=== PATIENT | female | born 1970 | race Caucasian/White ===

== ENCOUNTER 2018-07-06 19:47 | Emergency (ER) | payer OTHER, SELFPAY ==
--- NOTE | 2018-07-06 | DI.RAD.S_ITS ---
PROCEDURE: XR FINGER LT MIN 2V INDICATIONS: LEFT HAND PAIN TECHNIQUE: AP hand, 2 views of the third finger(s) acquired. COMPARISON: [facility], , XR HAND LT MIN 3V, 07/06/2018, 20:08. FINDINGS: Bones: No fractures or dislocations. No suspicious bony lesions. Soft tissues: No suspicious soft tissue calcifications. IMPRESSION: No acute fracture. No osseous lesion. If clinical suspicion and/or symptoms persist, further assessment with repeat plainfilms, or advanced imaging (e.g., CT, MRI, or bone scan) may be helpful for further assessment. Dictated by: Sera White M.D. on 07/06/2018 at 20:46 Approved by: Sera White M.D. on 07/06/2018 at 20:47
[2018-07-06 19:55] VITALS: PULSE 70
[2018-07-06 20:00] VITALS: BP 129/62; PULSE 70; RESP 18; TEMP 36.8; O2SAT 97; BMI 33.5
--- NOTE | 2018-07-06 20:05 | DI.RAD.S_ITS ---
PROCEDURE: XR HAND LT MIN 3V INDICATIONS: left hand injury TECHNIQUE: 3 views of the hand(s) acquired. COMPARISON: None. FINDINGS: Bones: No fractures or dislocations. Carpal bones are normally aligned. No suspicious bony lesions. Distal radius and ulna are obscured. Proximal carpal row is obscured. Soft tissues: No suspicious soft tissue calcifications. IMPRESSION: No acute fracture. No osseous lesion. If clinical suspicion and/or symptoms persist, further assessment with repeat plainfilms, or advanced imaging (e.g., CT, MRI, or bone scan) may be helpful for further assessment. Dictated by: Sera White M.D. on 07/06/2018 at 20:18 Approved by: Sera White M.D. on 07/06/2018 at 20:19
--- NOTE | 2018-07-06 20:16 | ED.UPPEXIN ---
HPI - Extremity Injury (Upper) <Jackie Soria PA-C - Last Filed: 07/06/18 22:31> General Chief Complaint: Extremity Injury, Upper Stated Complaint: hurt left middle finger Time Seen by Provider: 07/06/18 20:16 Source: patient Mode of arrival: ambulatory Limitations: no limitations History of Present Illness HPI narrative: This 47-year-old female states that she tripped on her way out of the door and somehow hit her left hand fingers and bent them awkwardly on the door as it was closing. She states that she has had pain in her middle and ring fingers since then and unable to move the middle finger. She denies any pain elsewhere in her hands, no wrist pain. She denies any other injury. She has a small scab on the finger from where she hit the door. She does not remember the date of her last tetanus vaccine. Related Data Home Medications Medication Instructions Recorded Confirmed [UNKNOWN MED ] #0 06/04/16 Allergies Allergy/AdvReac Type Severity Reaction Status Date / Time No Known Allergies Allergy Uncoded 08/11/17 12:05 Review of Systems <Jackie Soria PA-C - Last Filed: 07/06/18 22:31> Review of Systems ROS Unobtainable: All systems reviewed & are unremarkable except as noted in HPI and below PFSH <Jackie Soria PA-C - Last Filed: 07/06/18 22:31> Medical History Generalized anxiety disorder (Chronic) Surgical History Status post breast reduction (Resolved) Status post cholecystectomy (Resolved) Social History Smoking Status: Never smoker Social History Smoking Status: Never smoker Exam <Jackie Soria PA-C - Last Filed: 07/06/18 22:31> Narrative Exam Narrative: GENERAL APPEARANCE: Patient sitting comfortably, in no distress. LUNGS: Clear to auscultation bilaterally. HEART: Rate and rhythm regular without murmur, normal S1 and S2, no S3 or S4. MUSCULOSKELETAL: flexion deformity of the left middle finger at the PIP, unable to extend actively, and the finger is held in flexion sitting over the 2nd finger ( unable to deviated medially).. She is tender over the 4th finger from the MCP joint to the PIP. No tenderness elsewhere over the hand or fingers. Strength is intact against resistance in all fingers aside from the middle finger. DERMATOLOGIC: Ecchymoses over the left 4th finger From the MCP to the PIP. There is a small scab at the medial border of the middle finger nail NEUROVASCULAR: left finger tips are warm and pink, radial and ulnar pulses are intact, sensation is grossly intact Initial Vital Signs Initial Vital Signs: Vital Signs Pulse Rate 70 07/06/18 19:55 <Rodríguez Rodrigues MD - Last Filed: 07/07/18 04:44> Initial Vital Signs Initial Vital Signs: Vital Signs Pulse Rate 70 07/06/18 19:55 Course <Jackie Soria PA-C - Last Filed: 07/06/18 22:31> Additional Information: there was no acute fracture visualized on x-ray, however patient has clear tendon weakness concern for rupture. I spoke with Dr. Richards, correctional security officer for orthopedics, who was kind enough to review photos of the deformity and x-ray. He suspects joint malrotation. Dr. Rodrigues was able to flex and extend the finger passively and did try to reduce would not reduce. Splinted comfortably for the evening and Dr. Richards advised his nurse will call early a.m. to get patient on schedule for OR. She will be NPO after midnight Orders Ordered: ED Orders 07/06/18 20:05 XR hand LT min 3V Stat Discontinued Medications Ibuprofen (Advil) 800 mg PO NOW ONE Stop: 07/06/18 20:51 Last Admin: 07/06/18 20:59 Dose: 800 mg Oxycodone/Acetaminophen (Endocet 5/325 Prepack) 1 bottle MISC SEEINSTR ONE Stop: 07/06/18 22:11 Last Admin: 07/06/18 22:13 Dose: 1 bottle Tetanus/Diphtheria Toxoids (Td) 0.5 ml IM .ONCE ONE Stop: 07/06/18 21:16 Last Admin: 07/06/18 21:18 Dose: 0.5 ml Vital Signs - 8 hr 07/06/18 22:13 Pulse Rate 65 Respiratory Rate 16 Blood Pressure [Left Arm] 118/69 Pulse Oximetry 100 <Rodríguez Rodrgiues MD - Last Filed: 07/07/18 04:44> Orders Ordered: ED Orders 07/06/18 20:05 XR hand LT min 3V Stat Discontinued Medications Ibuprofen (Advil) 800 mg PO NOW ONE Stop: 07/06/18 20:51 Last Admin: 07/06/18 20:59 Dose: 800 mg Oxycodone/Acetaminophen (Endocet 5/325 Prepack) 1 bottle MISC SEEINSTR ONE Stop: 07/06/18 22:11 Last Admin: 07/06/18 22:13 Dose: 1 bottle Tetanus/Diphtheria Toxoids (Td) 0.5 ml IM .ONCE ONE Stop: 07/06/18 21:16 Last Admin: 07/06/18 21:18 Dose: 0.5 ml Vital Signs - 8 hr 07/06/18 22:13 Pulse Rate 65 Respiratory Rate 16 Blood Pressure [Left Arm] 118/69 Pulse Oximetry 100 MDM - Extremity Injury (Upper) <Jackie Soria PA-C - Last Filed: 07/06/18 22:31> Imaging Data hand: Radiologist's impression: [address] [address] XRay Report Signed Patient: Tina Fernandez [facility]#: [id number] : 1970Acct:[id number] Age/Sex: 47 / FDate of Service: 07/06/18 Loc: ED Accession Number: [id number] Procedure: XR hand LT min 3V Ordering Provider: Rodríguez Rodrigues M.D. PROCEDURE: XR HAND LT MIN 3V INDICATIONS: left hand injury TECHNIQUE: 3 views of the hand(s) acquired. COMPARISON: None. FINDINGS: Bones: No fractures or dislocations. Carpal bones are normally aligned. No suspicious bony lesions. Distal radius and ulna are obscured. Proximal carpal row is obscured. Soft tissues: No suspicious soft tissue calcifications. IMPRESSION: No acute fracture. No osseous lesion. If clinical suspicion and/or symptoms persist, further assessment with repeat plainfilms, or advanced imaging (e.g., CT, MRI, or bone scan) may be helpful for further assessment. Dictated by: Sera White M.D. on 07/06/2018 at 20:18 Approved by: Sera White M.D. on 07/06/2018 at 20:19 Discharge Plan Departure Patient Disposition: Home Clinical Impression: Closed dislocation finger, proximal interphalangeal joint, traumatic Discharge Date/Time: 07/06/18 22:20 Interventions: ED Discharge Assessment Last Done: 07/06/18 22:19 Instructions: DI for Finger Dislocation Activity Restrictions/Additional Instructions: Please keep your finger in the splint tonight. We have given you some oxycodone/acetaminophen to take for this evening, 1-2 tablets every 4-[address] Richards's nurse (the orthopedic doctor that I spoke with herminioshashi and saw your pictures) will call you in the morning about 8:00 a.m. with a time to be therefore surgery, likely in the morning. Do not eat or drink anything after midnight tonight. He will plan to fix this in day surgery tomorrow. Return as we talked about if you have acutely worsening symptoms this evening. Prescriptions: No Action [UNKNOWN MED ] Qty: 0 RF: 0 Referrals: Channing Richards MD [Physician] - Natalie Paredes DO [Primary Care Provider] - <Rodríguez Rodrigues MD - Last Filed: 07/07/18 04:44> Cosign ED Attending Martineature Attestation: I was in the ER at the time of this patient's care. I was available for assistance if needed. I agree with the assessment and treatment plan.
--- NOTE | 2018-07-06 20:24 | ED_ITS ---
HPI - Extremity Injury (Upper) <Jackie Soria PA-C - Last Filed: 07/06/18 22:31> General Chief Complaint: Extremity Injury, Upper Stated Complaint: hurt left middle finger Time Seen by Provider: 07/06/18 20:16 Source: patient Mode of arrival: ambulatory Limitations: no limitations History of Present Illness HPI narrative: This 47-year-old female states that she tripped on her way out of the door and somehow hit her left hand fingers and bent them awkwardly on the door as it was closing. She states that she has had pain in her middle and ring fingers since then and unable to move the middle finger. She denies any pain elsewhere in her hands, no wrist pain. She denies any other injury. She has a small scab on the finger from where she hit the door. She does not remember the date of her last tetanus vaccine. Related Data Home Medications Medication Instructions Recorded Confirmed [UNKNOWN MED ] #0 06/04/16 Allergies Allergy/AdvReac Type Severity Reaction Status Date / Time No Known Allergies Allergy Uncoded 08/11/17 12:05 Review of Systems <Jackie Soria PA-C - Last Filed: 07/06/18 22:31> Review of Systems ROS Unobtainable: All systems reviewed & are unremarkable except as noted in HPI and below PFSH <Jackie Soria PA-C - Last Filed: 07/06/18 22:31> Medical History Generalized anxiety disorder (Chronic) Surgical History Status post breast reduction (Resolved) Status post cholecystectomy (Resolved) Social History Smoking Status: Never smoker Social History Smoking Status: Never smoker Exam <Jackie Soria PA-C - Last Filed: 07/06/18 22:31> Narrative Exam Narrative: GENERAL APPEARANCE: Patient sitting comfortably, in no distress. LUNGS: Clear to auscultation bilaterally. HEART: Rate and rhythm regular without murmur, normal S1 and S2, no S3 or S4. MUSCULOSKELETAL: flexion deformity of the left middle finger at the PIP, unable to extend actively, and the finger is held in flexion sitting over the 2nd finger ( unable to deviated medially).. She is tender over the 4th finger from the MCP joint to the PIP. No tenderness elsewhere over the hand or fingers . Strength is intact against resistance in all fingers aside from the middle finger. DERMATOLOGIC: Ecchymoses over the left 4th finger From the MCP to the PIP. There is a small scab at the medial border of the middle finger nail NEUROVASCULAR: left finger tips are warm and pink, radial and ulnar pulses are intact, sensation is grossly intact Initial Vital Signs Initial Vital Signs: Vital Signs Pulse Rate 70 07/06/18 19:55 <Rodríguez Rodrigues MD - Last Filed: 07/07/18 04:44> Initial Vital Signs Initial Vital Signs: Vital Signs Pulse Rate 70 07/06/18 19:55 Course <Jackie Soria PA-C - Last Filed: 07/06/18 22:31> Additional Information: there was no acute fracture visualized on x-ray, however patient has clear tendon weakness concern for rupture. I spoke with Dr. Richards, chief librarian extension department for orthopedics, who was kind enough to review photos of the deformity and x-ray. He suspects joint malrotation. Dr. Rodrigues was able to flex and extend the finger passively and did try to reduce would not reduce. Splinted comfortably for the evening and Dr. Richards advised his nurse will call early a.m. to get patient on schedule for OR. She will be NPO after midnight Orders Ordered: ED Orders 07/06/18 20:05 XR hand LT min 3V Stat Discontinued Medications Ibuprofen (Advil) 800 mg PO NOW ONE Stop: 07/06/18 20:51 Last Admin: 07/06/18 20:59 Dose: 800 mg Oxycodone/Acetaminophen (Endocet 5/325 Prepack) 1 bottle MISC SEEINSTR ONE Stop: 07/06/18 22:11 Last Admin: 07/06/18 22:13 Dose: 1 bottle Tetanus/Diphtheria Toxoids (Td) 0.5 ml IM .ONCE ONE Stop: 07/06/18 21:16 Last Admin: 07/06/18 21:18 Dose: 0.5 ml Vital Signs - 8 hr 07/06/18 22:13 Pulse Rate 65 Respiratory Rate 16 Blood Pressure [Left Arm] 118/69 Pulse Oximetry 100 <Rodríguez Rodrigues MD - Last Filed: 07/07/18 04:44> Orders Ordered: ED Orders 07/06/18 20:05 XR hand LT min 3V Stat Discontinued Medications Ibuprofen (Advil) 800 mg PO NOW ONE Stop: 07/06/18 20:51 Last Admin: 07/06/18 20:59 Dose: 800 mg Oxycodone/Acetaminophen (Endocet 5/325 Prepack) 1 bottle MISC SEEINSTR ONE Stop: 07/06/18 22:11 Last Admin: 07/06/18 22:13 Dose: 1 bottle Tetanus/Diphtheria Toxoids (Td) 0.5 ml IM .ONCE ONE Stop: 07/06/18 21:16 Last Admin: 07/06/18 21:18 Dose: 0.5 ml Vital Signs - 8 hr 07/06/18 22:13 Pulse Rate 65 Respiratory Rate 16 Blood Pressure [Left Arm] 118/69 Pulse Oximetry 100 MDM - Extremity Injury (Upper) <Jackie Soria PA-C - Last Filed: 07/06/18 22:31> Imaging Data hand: Radiologist's impression: [address] [address] XRay Report Signed Patient: Tina Fernandez [facility]#: [id number] : 1970Acct:[id number] Age/Sex: 47 / FDate of Service: 07/06/18 Loc: ED Accession Number: [id number] Procedure: XR hand LT min 3V Ordering Provider: Rodríguez Rodrigues M.D. PROCEDURE: XR HAND LT MIN 3V INDICATIONS: left hand injury TECHNIQUE: 3 views of the hand(s) acquired. COMPARISON: None. FINDINGS: Bones: No fractures or dislocations. Carpal bones are normally aligned. No suspicious bony lesions. Distal radius and ulna are obscured. Proximal carpal row is obscured. Soft tissues: No suspicious soft tissue calcifications. IMPRESSION: No acute fracture. No osseous lesion. If clinical suspicion and/or symptoms persist, further assessment with repeat plainfilms, or advanced imaging (e.g., CT, MRI, or bone scan) may be helpful for further assessment. Dictated by: Sera White M.D. on 07/06/2018 at 20:18 Approved by: Sera White M.D. on 07/06/2018 at 20:19 Discharge Plan Departure Patient Disposition: Home Clinical Impression: Closed dislocation finger, proximal interphalangeal joint, traumatic Discharge Date/Time: 07/06/18 22:20 Interventions: ED Discharge Assessment Last Done: 07/06/18 22:19 Instructions: DI for Finger Dislocation Activity Restrictions/Additional Instructions: Please keep your finger in the splint tonight. We have given you some oxycodone/acetaminophen to take for this evening, 1-2 tablets every 4-[address] Richadrs's nurse (the orthopedic doctor that I spoke with herminioshashi and saw your pictures) will call you in the morning about 8:00 a.m. with a time to be therefore surgery, likely in the morning. Do not eat or drink anything after midnight tonight. He will plan to fix this in day surgery tomorrow. Return as we talked about if you have acutely worsening symptoms this evening. Prescriptions: No Action [UNKNOWN MED ] Qty: 0 RF: 0 Referrals: Channing Richards MD [Physician] - Natalie Paredes DO [Primary Care Provider] - <Rodríguez Rodrigues MD - Last Filed: 07/07/18 04:44> Cosign ED Attending Martineature Attestation: I was in the ER at the time of this patient's care. I was available for assistance if needed. I agree with the assessment and treatment plan.
[2018-07-06] MEDS: IBUPROFEN 400 MG TABLET 800 MG PO (20:59)
[2018-07-06] MEDS: TETANUS DIPHTHERIA TOXOIDS 0.5 ML VIAL IM (21:18)
[2018-07-06 22:13] VITALS: BP 118/69; PULSE 65; RESP 16; O2SAT 100
[2018-07-06] MEDS: OXYCODONE/APAP 5/325 PREPACK 1 BOTTLE MISC (22:13)
== END 2018-07-06 22:20 | disposition home or self-care (01) ==
PROVIDERS: Emergency Provider Internal Medicine; PCP Family Medicine
DX: S63.289A Dislocation of proximal interphalangeal joint of unspecified finger, initial encounter (principal); W18.40XA Slipping, tripping and stumbling without falling, unspecified, initial encounter
CPT/HCPCS: 73130; 73140; 90471; 90714; 99282; 99283

== ENCOUNTER 2019-05-25 13:30 | Day surgery (SDC) | payer OTHER, SELFPAY ==
[2019-05-25] VITALS (7 sets, daily range): BP systolic 102–111; BP diastolic 61–70; PULSE 61–71; RESP 11–16; TEMP 36.2–36.7; O2SAT 96–98; BMI 33.2
[2019-05-25] MEDS: SODIUM CHLORIDE 0.9% 1,000 ML 200 ML IV (13:47)
--- NOTE | 2019-05-25 14:39 | P.HP_ITS ---
History of Present Illness History of Present Illness Date Patient Seen: 05/25/19 Time Patient Seen: 14:41 Chief complaint: [id number] SCREENING COLONOSCOPY Narrative: Patient presents for colorectal screening. They have never had any previous examination for such. No personal or family history of colon cancer. On further history denies any recent gastrointestinal symptoms. No nausea, vomiting, abdominal pain, loss of appetite, unexplained weight loss, change in b owel habits, diarrhea, constipation, melena, hematochezia, or bright red blood per rectum. Patient History Medical History Generalized anxiety disorder (Chronic) Surgical History Status post breast reduction (Resolved) Status post cholecystectomy (Resolved) Family & Social History Social History: household members spouse Tobacco & Substance use: Smoking Status Never smoker alcohol intake frequency a few times a month Substance Use Type does not use Meds Home Medications and Allergies Home Medications Medication Instructions Recorded Confirmed Type [UNKNOWN MED ] #0 06/04/16 History alprazolam 0.25 mg PO BEDTIME PRN 05/25/19 05/25/19 History bupropion HCl 150 mg PO BID 05/25/19 05/25/19 History escitalopram oxalate 20 mg PO DAILY 05/25/19 05/25/19 History Allergies Allergy/AdvReac Type Severity Reaction Status Date / Time No Known Allergies Allergy Verified 05/25/19 13:27 Review of Systems Review of Systems Narrative: A 10 point review of systems is negative except as noted in the HPI Exam Vital Signs (past 8 hours): - 05/25/19 13:53 Temperature 97.7 F Pulse Rate 71 Respiratory Rate 16 Blood Pressure 102/66 Pulse Oximetry 96 Oxygen Delivery Method Room Air Narrative Exam Narrative: General-no acute distress, well nourished HEENT-moist mucous membranes, no scleral icterus Neck-supple, no lymphadenopathy Chest- non labored respirations, clear to auscultation bilaterally Cardiac-regular rate no peripheral edema Abdomen-soft, nontender, non distended Extremities-warm, well perfused Neurological-alert and oriented, no focal deficits Assessment & Plan Assessment and plan (1) Screening for colon cancer: Current visit: Yes Status: Acute Assessment & Plan narrative: The patient requires colorectal screening and colonoscopy is recommended. Technical details were discussed. Risks, benefits, alternatives explained. Risks including but not limited to myocardial infarction, aspiration, bleeding, pain, missed lesion, incomplete examination, need for further radiographic studies, colonic perforation, and need for major abdominal surgery were discussed. All questions were answered to their satisfaction, and they are in agreement with this plan.
[2019-05-25] MEDS: fentaNYL 250 MCG/5 ML INJ IV (14:43)
[2019-05-25] MEDS: MIDAZOLAM 5 MG/5 ML VIAL IV (14:44)
--- NOTE | 2019-05-25 15:07 | PM.OP.ENDO ---
Operative Date/Time/Diagnoses Date of procedure: 05/25/19 Time of procedure: 15:07 Pre-op diagnosis: screening colonoscopy Post-op diagnosis: same Procedure & Clinicians Study performed: colonoscopy Same procedure as scheduled: Yes Indications: 48-year-old female no prior colonoscopy presents for routine screening. Surgeon: Micah Penaloza Procedure Notes SCOAP/Timeout: Performed Procedure in detail: Patient placed in left lateral decubitus position. Time out was performed. Procedural sedation was administered with Versed and Fentanyl. A rectal exam demonstrated no external hemorrhoids no internal masses. Colonoscopy scope was placed into the rectum and advanced through the colon to the cecum. The ileocecal valve was identified. The scope was then slowly withdrawn examining colon thoroughly in all directions. The colonoscopy was notable for the following 1. No masses or polyps 2. No diverticulosis 3. Quality of prep excellent Scope withdrawal time: 6 Sedation minutes: 21 Specimen(s): none sent Complications: none Impression: Normal colonoscopy Post-procedure Recommendations: Colonscopy in 10 years Disposition: same day surgery
--- NOTE | 2019-05-25 15:52 | SUR.PHASEII ---
Lois at bedside. Patient tolerating PO fluids. No pain. VSS. Discharge instructions given to spouse.
== END 2019-05-25 16:12 | disposition home or self-care (01) ==
PROVIDERS: PCP Family Medicine; Visit Provider Surgery
PROC: 0DJD8ZZ Inspection of Lower Intestinal Tract, Via Natural or Artificial Opening Endoscopic (ICD-10-PCS; CPT 45378; principal; 2019-05-25 14:30)
DX: Z12.11 Encounter for screening for malignant neoplasm of colon (principal); F41.9 Anxiety disorder, unspecified
CPT/HCPCS: 45378; 99152; J2250; J3010

== ENCOUNTER → 2019-12-06 08:02 | Outpatient (CLI) | payer OTHER, SELFPAY ==
[2019-12-06 09:26] LABS: Add Manual Diff / Slide Review NO; Basophils Absolute Auto 100 /uL (0-100); Basophils Percent Auto 1.7 % (0-2); Eosinophils Absolute Auto 200 /uL (0-450); Eosinophils Percent Auto 3.3 % (2-4); Hematocrit 33.3 % (36-46); Hemoglobin 10.4 g/dL (12.0-16.0); Lymphocytes Absolute Auto 1200 /uL (1100-4500); Lymphocytes Percent Auto 17.6 % (25-40); Mean Corpuscular HGB Conc 31.3 % (30-36); Mean Corpuscular Hemoglobin 21.5 PG (26-34); Mean Corpuscular Volume 68.8 fL (80-100); Monocytes Absolute Auto 600 /uL (0-900); Monocytes Percent Auto 9.7 % (3-14); Neutrophils Absolute Auto 4500 /uL (1500-7000); Neutrophils Percent Auto 67.7 % (50-75); Platelet Count 365 X10^3/uL (150-400); Red Blood Cell Count 4.84 X10^6/uL (4.0-5.2); White Blood Cell Count 6.7 X10^3/uL (4.5-11.0)
[2019-12-06 09:44] LABS: HEMOLYSIS < 15 (0-50); Iron 25 ug/dL (37-170)
[2019-12-06 09:49] LABS: Alanine Aminotransferase 10 IU/L (<35); Albumin 4.3 g/dL (3.5-5.0); Albumin Globulin Ratio 1.6 (1.0-2.8); Alkaline Phosphatase 91 U/L (38-126); Aspartate Aminotransferase 17 IU/L (14-36); BUN Creatinine Ratio 14.6 (6-22); Bilirubin Total 0.3 mg/dL (0.2-1.3); Blood Urea Nitrogen 12 mg/dL (7-17); Calcium 9.5 mg/dL (8.4-10.2); Carbon Dioxide 28 mmol/L (22-32); Chloride 103 mmol/L (98-107); Cholesterol 235 mg/dL (140-199); Estimated Glomerular Filt Rate > 60.0 mL/min (>60); Globulin 2.7 g/dL (1.7-4.1); Glucose 104 mg/dL (70-100); HDL Cholesterol 47 mg/dL (40-60); HEMOLYSIS < 15 (0-50); LDL Cholesterol Calculated 162 mg/dL (<100); Potassium 4.9 mmol/L (3.4-5.1); Sodium 137 mmol/L (137-145); Triglycerides 129 mg/dL (35-150)
[2019-12-06 09:54] LABS: Microcytosis 2+; Percent Iron Saturation 6 % (15-50); Total Iron Binding Capacity 393 ug/dL (265-497); Transferrin 312 mg/dL (206-381)
== END ==
PROVIDERS: PCP Physician Assistant; Referring Provider Physician Assistant; Visit Provider Physician Assistant
DX: D50.8 Other iron deficiency anemias (principal); F41.9 Anxiety disorder, unspecified; E78.2 Mixed hyperlipidemia
CPT/HCPCS: 36415; 80053; 80061; 83540; 83550; 85025

== ENCOUNTER → 2020-02-27 10:58 | Outpatient (CLI) | payer OTHER, SELFPAY ==
[2020-02-28 06:31] LABS: COVID19 Sendout Not Detected (Not Detect)
== END ==
PROVIDERS: PCP Physician Assistant; Visit Provider Nurse Practitioner
DX: Z11.59 Encounter for screening for other viral diseases (principal)
CPT/HCPCS: 87635

== ENCOUNTER 2020-03-01 08:38 | Day surgery (SDC) | payer OTHER, SELFPAY ==
[2020-02-29 08:26] VITALS: BMI 33.3
[2020-03-01 08:56] VITALS: BMI 33.3
[2020-03-01 09:09] VITALS: BP 109/70; PULSE 70; RESP 26; TEMP 36.4; O2SAT 97
[2020-03-01] MEDS: LACTATED RINGERS 1,000 ML 42 ML IV (09:17)
--- NOTE | 2020-03-01 09:57 | PM.PREOP ---
Pre-operative Note COVID-19 COVID-19 status: Negative Result date/Date tested (Pos, Neg/Pending): 02/27/20 Interval Note History & Physical reviewed/Exam performed by Physician: Yes Changes to H&P: No
--- NOTE | 2020-03-01 10:22 | SUR.OPER ---
Lithotomy on padded OR bed, head on pillow, arms secured on padded arm boards at <90 degrees abduction. Legs secured in padded yellow fins stirrups.
[2020-03-01] MEDS: SILVER NITRATE STICK 2 EACH TOP (10:33)
[2020-03-01 10:42] VITALS: BP 112/64; PULSE 76; RESP 13; TEMP 36.4; O2SAT 96
--- NOTE | 2020-03-01 10:45 | PM.OP.1 ---
Operative Date/Time/Diagnoses Date of procedure: 03/01/20 Time of procedure: 10:00 Pre-op diagnosis: Heavy menstrual bleeding Post-op diagnosis: same Procedure & Clinicians Procedure: Endometrial ablation Same procedure as scheduled: Yes Indications: Heavy menstrual bleeding Surgeon: Birgit Sears Membership Director: Anali Ruiz Anesthesia Type: Sedation Operative Notes Findings: Normal vulva and vagina. Uterus sounds to 8 cm, 4 cm cavity with 4 cm cervix Specimen(s): none sent Estimated Blood Loss (mL): 0 Procedure in detail: After informed consent was obtained, the patient was taken to the operating room where she was placed under IV sedation. She she was placed in the dorsal lithotomy position and prepped and draped in the normal sterile fashion. An exam was performed and the uterus found to be mildly anteverted. An open-sided bivalve speculum was placed into the vagina, and the cervix easily visualized. The anterior lip of the cervix was grasped with a single-tooth tenaculum. A sound was used to measure the cervix to 4 cm without palpable internal os, and then gently advanced through the internal os to the fundus, measuring the total distance 8 cm for cavity length of 4 cm. The cervix was then gently dilated to 8 mm with Hegar dilators, with only gentle pressure needed. The NovaSure device was inspected, and found to be working properly. It was gently inserted through the cervix to the uterine fundus, and the ablation device deployed and locked into place. The device was rotated gently anteriorly and posteriorly to ensure maximum contact with the endometrial cavity. Cervical seal was deployed. A cavity assessment was performed and was passed, and the cavity width was found to be 3 cm. Power was calculated to be 66 w . Endometrial ablation was performed, with 120 seconds of ablation. The NovaSure device was withdrawn and removed from the uterus. The tenaculum was removed from the anterior lip of the cervix, and hemostasis at the tenaculum sites achieved with silver nitrate. The speculum was removed from the vagina. The patient tolerated the procedure well and was taken to the PACU in stable condition. IVF 700ccs Complications: none Post-operative Condition: stable Disposition: PACU Plan for aftercare: Routine postoperative care
[2020-03-01 10:47] VITALS: BP 110/67; PULSE 68; RESP 12; O2SAT 98
[2020-03-01 10:55] VITALS: BP 113/65; PULSE 65; RESP 17; O2SAT 97
[2020-03-01] MEDS: OXYCODONE/ACETAMINOPHEN 5/325 TABLET 1 TAB PO (11:01)
[2020-03-01 11:05] VITALS: BP 110/67; PULSE 68; RESP 12; TEMP 36.2; O2SAT 98
[2020-03-01 11:08] VITALS: BP 115/51; PULSE 62; RESP 16; TEMP 36.2; O2SAT 99
== END 2020-03-01 11:25 | disposition home or self-care (01) ==
PROVIDERS: PCP Physician Assistant; Referring Provider Obstetrics & Gynecology; Visit Provider Obstetrics & Gynecology
PROC: 0U5B8ZZ Destruction of Endometrium, Via Natural or Artificial Opening Endoscopic (ICD-10-PCS; CPT 58563; principal; 2020-03-01 09:45)
DX: N92.0 Excessive and frequent menstruation with regular cycle (principal)
CPT/HCPCS: 58353; J2704; J3010

== ENCOUNTER → 2020-05-23 18:51 | Outpatient (ROUT) | payer OTHER, SELFPAY ==
[2020-05-23 19:19] LABS: Add Manual Diff / Slide Review NO; Basophils Absolute Auto 100 /uL (0-100); Eosinophils Absolute Auto 200 /uL (0-450); Eosinophils Percent Auto 2.5 % (2-4); Hematocrit 40.6 % (36-46); Hemoglobin 13.5 g/dL (12.0-16.0); Lymphocytes Absolute Auto 1600 /uL (1100-4500); Lymphocytes Percent Auto 20.2 % (25-40); Mean Corpuscular HGB Conc 33.3 % (30-36); Mean Corpuscular Hemoglobin 27.9 PG (26-34); Mean Corpuscular Volume 83.8 fL (80-100); Monocytes Absolute Auto 800 /uL (0-900); Monocytes Percent Auto 9.6 % (3-14); Neutrophils Absolute Auto 5300 /uL (1500-7000); Neutrophils Percent Auto 66.7 % (50-75); Platelet Count 273 X10^3/uL (150-400); Red Blood Cell Count 4.85 X10^6/uL (4.0-5.2); Red Cell Distribution Width 14.3 % (11.6-14.8)
[2020-05-23 19:23] LABS: HEMOLYSIS < 15 (0-50); Iron 41 ug/dL (37-170)
[2020-05-23 19:28] LABS: Alanine Aminotransferase 17 IU/L (<35); Albumin 4.1 g/dL (3.5-5.0); Albumin Globulin Ratio 1.6 (1.0-2.8); Alkaline Phosphatase 79 U/L (38-126); Aspartate Aminotransferase 27 IU/L (14-36); BUN Creatinine Ratio 13.8 (6-22); Bilirubin Total 0.2 mg/dL (0.2-1.3); Blood Urea Nitrogen 11 mg/dL (7-17); Calcium 9.3 mg/dL (8.4-10.2); Carbon Dioxide 31 mmol/L (22-32); Chloride 101 mmol/L (98-107); Estimated Glomerular Filt Rate > 60.0 mL/min (>60); Globulin 2.6 g/dL (1.7-4.1); Glucose 102 mg/dL (70-100); HEMOLYSIS < 15 (0-50); Potassium 4.2 mmol/L (3.4-5.1); Sodium 136 mmol/L (137-145); Total Protein 6.7 g/dL (6.3-8.2)
[2020-05-23 19:29] LABS: C-Reactive Protein Quant < 0.5 mg/dL (<1.0)
[2020-05-23 19:38] LABS: Percent Iron Saturation 15 % (15-50); Total Iron Binding Capacity 281 ug/dL (265-497); Transferrin 216 mg/dL (206-381)
[2020-05-23 19:52] LABS: Erythrocyte Sedimentation Rate 3 MM/HR (0-20)
[2020-05-23 19:59] LABS: Ferritin 27 ng/mL (11-264)
== END ==
PROVIDERS: PCP Physician Assistant; Visit Provider Physician Assistant
DX: R51.9 Headache, unspecified (principal); D50.9 Iron deficiency anemia, unspecified
CPT/HCPCS: 80053; 82728; 83540; 83550; 85025; 85651; 86140